=== PATIENT | female | born 1940 | race Caucasian/White ===

== ENCOUNTER 2020-12-26 07:15 | Day surgery (SDC) | payer MEDICARE, SELFPAY ==
--- NOTE | 2020-12-23 12:32 | PM.PREOP ---
Pre-operative Note COVID-19 COVID-19 status: Negative Interval Note History & Physical reviewed/Exam performed by Physician: Yes Changes to H&P: No
--- NOTE | 2020-12-23 12:33 | P.OP_ITS ---
Operative Date/Time/Diagnoses Date of procedure: 12/26/20 Time of procedure: 08:45 Procedure & Clinicians Procedure: Preoperative diagnoses: 1. 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 2. Heart murmur with echocardiogram showing mild mitral and tricuspid regurgitation. Cleared for surgery. 3. Hearing loss 4. Arthritis Postoperative diagnoses: 1. Cataract removed by phacoemulsification with placement of posterior chamber intraocular lens. Procedure: Phacoemulsification with posterior chamber intraocular lens implant Surgeon: Nadja Segura MD Complications: None Specimen: None Implant: [id number] Blood loss: None Anesthesia: Retrobulbar with monitored standby Description of procedure: Patient presents with a complaint of decreased vision for driving and television due to cataract which is affecting activities of daily living. The patient wants surgery to improve vision. She understands the extra risk of surgery during the COVID-19 epidemic and wishes to proceed. She has tested negative for active COVID-19 virus within 72 hours of the procedure. The patient was taken to the operating room and given IV sedation. A retrobulbar block consisting of 6 cc of 2% xylocaine without epinephrine mixed half and half with 0.5% Marcaine with 1 cc of hyaluronidase added is placed between the medial and lateral 1/3 of the inferior orbital rim. The eye is manually massaged for 30 sec, prepped using Betadine solution, and draped in the usual sterile fashion. Temporal approach was made, a 1 mm side-port incision was made 90? from the proposed clear corneal incision position. Phenylephrine 1.5% mixed with 1% xylo shantell 0.2 cc was placed into the anterior chamber. Visudye was placed enhance visibility due to cortical spokes in the visual axis Endocoat followed by Guerita was then placed. A 2.6 mm clear incision with a 2.6 mm blade was placed. A 360 degree capsulorrhexis style capsulotomy was then performed with a cystitome needle on a Healon. Hydrodelineation and hydrodissection were performed. The phacoemulsification unit is introduced, and sculpting notice used to groove the central lens. It is then removed in chopping mode. Epi nucleus is removed with epinuclear mode and irrigation aspiration was used to remove the peripheral cortex. The posterior capsule is polished. The intraocular lens is selected, inspected, power confirmed, and placed in the posterior chamber. The wound was stromally hydrated and tested for leaks, there was none and it was left sutureless. Vigamox 0.1 cc was placed into the anterior chamber. Kenalog 0.2 cc was placed in the superior subconjunctival space. A drop of antibiotic and was placed and the eye was patched and shielded. The patient was stable and returned to the recovery room in excellent condition. Dictated by: Nadja Segura MD Copy to: [facility] Same procedure as scheduled: Yes
[2020-12-26] MEDS: PROPARACAINE 0.5% OPHTH SOL 2 DROPS EYE-OP (07:53)
[2020-12-26] MEDS: CATARACT EYE COMPOUND (10 DROPS/SYRINGE) 3 DROPS EYE-OP (07:56)
[2020-12-26 08:12] VITALS: BP 140/78; PULSE 74; RESP 18; TEMP 37.2; O2SAT 98; BMI 36.6
[2020-12-26] MEDS: HYALURONATE SODIUM 30 MG-10 MG/ML SYRINGES 1 BOX INTRAOCULA (10:16)
[2020-12-26] MEDS: MOXIFLOXACIN INJ 4 MG/0.8 ML VIAL 0.5 MG EYE-OP (10:16)
[2020-12-26] MEDS: ERYTHROMYCIN OPHTH 1 GM OINT 1 APPLIC EYE-LEFT (10:16)
[2020-12-26] MEDS: BALANCED SALT IRRIG SOLN NO.2 500 ML, EPINEPHrine 1 MG IRR (10:17)
[2020-12-26] MEDS: TRIAMCINOLONE 50 MG/5 ML VIAL INJ (10:17)
[2020-12-26] MEDS: TRYPAN BLUE 0.5 ML SYRINGE INJ (10:17)
[2020-12-26] MEDS: PHENYLEPHRINE/LIDOCAINE VIAL (OR) 0.2 ML EYE-OP (10:17)
[2020-12-26] MEDS: LIDOCAINE 2% 4 ML, BUPIVACAINE 0.5% (PF) 4 ML, HYALURONIDASE 150 UNIT INJ (10:18)
[2020-12-26 10:48] VITALS: BP 155/94; PULSE 75; RESP 18; TEMP 36.3; O2SAT 97
== END 2020-12-26 11:10 | disposition home or self-care (01) ==
LOC: OR 07:18
PROVIDERS: PCP Specialist; Referring Provider Ophthalmology; Visit Provider Ophthalmology
PROC: (CPT 66984; principal; 2020-12-26 08:45)
DX: H25.812 Combined forms of age-related cataract, left eye (principal); I08.1 Rheumatic disorders of both mitral and tricuspid valves; E03.9 Hypothyroidism, unspecified; J45.909 Unspecified asthma, uncomplicated; Z87.891 Personal history of nicotine dependence
CPT/HCPCS: 66984; J0171; J2250; J2704; J3010; J3301; J3470

== ENCOUNTER 2021-01-16 06:17 | Day surgery (SDC) | payer MEDICARE, SELFPAY ==
--- NOTE | 2021-01-15 18:20 | PM.PREOP ---
Pre-operative Note COVID-19 COVID-19 status: Negative Interval Note History & Physical reviewed/Exam performed by Physician: Yes Changes to H&P: No
--- NOTE | 2021-01-15 18:21 | PM.OP.1 ---
Operative Date/Time/Diagnoses Date of procedure: 01/16/21 Time of procedure: 07:45 Procedure & Clinicians Procedure: Preoperative diagnoses: 1. Right nuclear sclerotic and cortical cataract. 2. Arthritis 3. Hearing loss 4. Rosacea 5. Heart murmur Postoperative diagnoses: 1. Cataract removed by phacoemulsification with placement of posterior chamber intraocular lens. Procedure: Phacoemulsification with posterior chamber intraocular lens implant Surgeon: Nadja Segura MD Complications: None Specimen: None Implant: [id number] Blood loss: None Anesthesia: Retrobulbar with monitored standby Description of procedure: Patient presents with a complaint of decreased vision due to cataract which is affecting activities of daily living for driving and reading. She has had successful surgery in her left eye and wishes to proceed to the to improve her ability to function. The patient wants surgery to improve vision. She understands the extra risk of surgery during the COVID-19 epidemic and wishes to proceed. She has tested negative to at active virus within 72 hours of the procedure. The patient was taken to the operating room and given IV sedation. She did have restless leg syndrome. A retrobulbar block consisting of 6 cc of 2% xylocaine without epinephrine mixed half and half with 0.5% Marcaine with 1 cc of hyaluronidase added is placed between the medial and lateral 1/3 of the inferior orbital rim. The eye is manually massaged for 30 sec, prepped using Betadine solution, and draped in the usual sterile fashion. Temporal approach was made, a 1 mm side-port incision was made 90? from the proposed clear corneal incision position. Phenylephrine 1.5% mixed with 1% xylocaine 0.2 cc was placed into the anterior chamber. Endocoat followed by Guerita was then placed. A 2.6 mm clear incision with a 2.6 mm blade was placed. A 360 degree capsulorrhexis style capsulotomy was then performed with a cystitome needle on a Healon. Hydrodelineation and hydrodissection were performed. The phacoemulsification unit is introduced, and sculpting notice used to groove the central lens. It is then removed in chopping mode. Epi nucleus is removed with epinuclear mode and irrigation aspiration was used to remove the peripheral cortex. The posterior capsule is polished. The intraocular lens is selected, inspected, power confirmed, and placed in the posterior chamber. The wound was stromally hydrated and tested for leaks, there was none and it was left sutureless. Vigamox 0.1 cc was placed into the anterior chamber. Kenalog 0.2 cc was placed in the superior subconjunctival space. A drop of antibiotic and was placed and the eye was patched and shielded. The patient was stable and returned to the recovery room in excellent condition. Dictated by: Nadja Segura MD Copy to: [facility] Same procedure as scheduled: Yes
[2021-01-16] MEDS: PROPARACAINE 0.5% OPHTH SOL 2 DROPS EYE-OP (06:58)
[2021-01-16 07:05] VITALS: BP 153/90; PULSE 67; RESP 16; TEMP 37.1; O2SAT 98; BMI 80.6
--- NOTE | 2021-01-16 07:18 | SUR.OPER ---
Supine on eye stretcher, head on extension cradle secured with tape. Arms tucked at sides with blanket. Pillow under knees.
[2021-01-16] MEDS: CATARACT EYE COMPOUND (10 DROPS/SYRINGE) 3 DROPS EYE-OP (07:21)
[2021-01-16] MEDS: HYALURONATE SODIUM 30 MG-10 MG/ML SYRINGES 1 BOX INTRAOCULA (08:08)
[2021-01-16] MEDS: MOXIFLOXACIN INJ 4 MG/0.8 ML VIAL 0.5 MG EYE-OP (08:08)
[2021-01-16] MEDS: PHENYLEPHRINE/LIDOCAINE VIAL (OR) 0.2 ML EYE-OP (08:09)
[2021-01-16] MEDS: TRIAMCINOLONE 50 MG/5 ML VIAL INJ (08:10)
[2021-01-16] MEDS: BALANCED SALT IRRIG SOLN NO.2 500 ML, EPINEPHrine 1 MG IRR (08:10)
[2021-01-16] MEDS: LIDOCAINE 2% 4 ML, BUPIVACAINE 0.5% (PF) 4 ML, HYALURONIDASE 150 UNIT INJ (08:11)
[2021-01-16] MEDS: ERYTHROMYCIN OPHTH 1 GM OINT 1 APPLIC EYE-RIGHT (08:11)
[2021-01-16 08:40] VITALS: BP 172/98; PULSE 81; RESP 16; TEMP 36.5; O2SAT 99
== END 2021-01-16 08:58 | disposition home or self-care (01) ==
LOC: OR 06:19
PROVIDERS: PCP Specialist; Referring Provider Ophthalmology; Visit Provider Ophthalmology
PROC: (CPT 66984; principal; 2021-01-16 07:45)
DX: H25.811 Combined forms of age-related cataract, right eye (principal); R01.1 Cardiac murmur, unspecified
CPT/HCPCS: 66984; J0171; J2250; J2704; J3301; J3470